=== PATIENT | male | born 1975 | race Caucasian/White ===

== ENCOUNTER 2018-06-30 09:11 | Emergency (ER) | payer BC ==
[2018-06-30] MEDS ORDERED: DIAZEPAM (VALIUM) 5MG/ML **10ML VIAL IM ONE (10:26)
[2018-06-30] MEDS ORDERED: PROMETHAZINE HCL 25 MG/ML VIAL IM ONE (10:26)
[2018-06-30] MEDS ORDERED: KETOROLAC 30 MG/ML VIAL IM ONE (10:26)
[2018-06-30] MEDS ORDERED: HYDROMORPHONE HCL 2 MG/ML VIAL IM ONE (10:26)
--- NOTE | 2018-06-30 10:32 | Emergency Department Record ---
History of Present Illness - General Chief Complaint: Back Pain/Injury Stated Complaint: BACK PAIN Time Seen by Provider: 06/30/18 10:00 Source: Patient Mode of Arrival: Ambulatory Limitations: No limitations - History of Present Illness Initial Comments: pt has had sciatica since last nov down r leg then over the last few days the l lower back has been hurting where pt cant even sit. pt has never had xrays. no problems w bowel or bladder Complaint: Back pain Onset/Timin -: Days(s) Similar Symptoms Previously: Yes Place: Other Severity: Moderate Severity scale (1-10): 5 Quality: Sharp Consistency: Constant, Intermittent Improves With: Walking Worsens With: Deep breaths/cough, Movement Context: Bending Associated Symptoms: Denies other symptoms Treatments Prior to Arrival: Acetaminophen, NSAIDS Treatment Prior to Arrival Comment:: 600 mg ibuprofen this AM - Related Data Previous Rx's Medication Instructions Recorded Diazepam [Valium] 5 mg PO Q8H #8 tab 06/30/18 Hydrocodone/Acetaminophen [[place] 1 each PO Q6HR #10 tablet 06/30/18 5-325 Tablet] Ibuprofen [Motrin] 800 mg PO Q8H PRN #20 tab 06/30/18 Allergies Allergy/AdvReac Type Severity Reaction Status Date / Time Penicillins Allergy Mild HIVES Verified 06/30/18 09:41 Travel Screening - Travel/Exposure Within Last 30 Days Have you traveled within the last 30 days?: No - Travel/Exposure Within Last Year Have you traveled outside the [place] in the last year?: No - Additonal Travel Details Have you been exposed to anyone with a communicable illness?: No - Travel Symptoms Symptom Screening: None Review of Systems Reviewed: No additional complaints except as noted below Constitutional: Reports: As per HPI. Denies: Chills, Fever, Malaise, Night sweats, Weakness, Weight change Eyes: Reports: As per HPI. Denies: Eye discharge, Eye pain, Photophobia, Vision change ENT: Reports: As per HPI. Denies: Congestion, Dental pain, Ear pain, Epistaxis, Hearing loss, Throat pain Respiratory: Reports: As per HPI. Denies: Cough, Dyspnea, Hemoptysis, Stridor, Wheezes Cardiovascular: Reports: As per HPI. Denies: Arrhythmia, Chest pain, Dyspnea on exertion, Edema, Murmurs, Orthopnea, Palpitations, Paroxysmal nocturnal dyspnea, Rheumatic Fever, Syncope Endocrine: Reports: As per HPI. Denies: Fatigue, Heat or cold intolerance, Polydipsia, Polyuria Gastrointestinal: Reports: As per HPI. Denies: Abdominal pain, Constipation, Diarrhea, Hematemesis, Hematochezia, Melena, Nausea, Vomiting Genitourinary: Reports: As per HPI. Denies: Dysuria, Frequency, Hematuria, Incontinence, Retention, Testicular pain, Testicular mass, Urgency Musculoskeletal: Reports: As per HPI, Back pain. Denies: Arthralgia, Gout, Joint swelling, Myalgia, Neck pain Skin: Reports: As per HPI. Denies: Bruising, Change in color, Change in hair/nails, Lesions, Pruritus, Rash Neurological: Reports: As per HPI. Denies: Abnormal gait, Confusion, Headache, Numbness, Paresthesias, Seizure, Tingling, Tremors, Vertigo, Weakness Psychiatric: Reports: As per HPI. Denies: Anxiety, Auditory hallucinations, Depression, Homicidal thoughts, Suicidal thoughts, Visual hallucinations Hematological/Lymphatic: Reports: As per HPI. Denies: Anemia, Blood Clots, Easy bleeding, Easy bruising, Swollen glands Past Medical History - SOCIAL HISTORY Smoking Status: Never smoker Alcohol Use: Occasional Drug Use: None - RESPIRATORY Hx Respiratory Disorders: Yes Hx Bronchitis: Yes - CARDIOVASCULAR Hx Cardio Disorders: No - NEURO Hx Neuro Disorders: No - GI Hx GI Disorders: No - Hx Genitourinary Disorders: No - ENDOCRINE Hx Endocrine Disorders: No - MUSCULOSKELETAL Hx Musculoskeletal Disorders: Yes Hx Arthritis: Yes (knee) - PSYCH Hx Psych Problems: No - HEMATOLOGY/ONCOLOGY Hx Hematology/Oncology Disorders: No Family Medical History Any Significant Family History?: Yes Hx Cancer: Grandparents Hx HTN: Father Physical Exam - General General Appearance: Alert, Oriented x3, Cooperative, Mild distress - Head Head exam: Normal inspection - Eye Eye exam: Normal appearance, PERRL, EOMI Pupils: Normal accommodation - ENT ENT exam: Normal exam, Mucous membranes moist, Normal external ear exam, Normal orophraynx Ear exam: Normal external inspection. negative: External canal tenderness Nasal Exam: Normal inspection. negative: Discharge, Sinus tenderness Mouth exam: Normal external inspection, Tongue normal Teeth exam: Normal inspection. negative: Dental caries Throat exam: Normal inspection. negative: Tonsillar erythema, Tonsillar exudate - Neck Neck exam: Normal inspection, Full ROM. negative: Tenderness - Respiratory Respiratory exam: Normal lung sounds bilaterally. negative: Respiratory distress - Cardiovascular Cardiovascular Exam: Regular rate, Normal rhythm, Normal heart sounds - GI/Abdominal GI/Abdominal exam: Soft, Normal bowel sounds. negative: Tenderness - Rectal Rectal exam: Deferred - exam: Deferred - Extremities Extremities exam: Normal inspection, Full ROM, Normal capillary refill. negative: Tenderness - Back Back exam: Reports: Muscle spasm, Paraspinal tenderness, Tenderness. Denies: Normal inspection, Full ROM, Rash noted - Neurological Neurological exam: Alert, CN II-XII intact, Normal gait, Oriented X3 - Psychiatric Psychiatric exam: Normal affect, Normal mood - Skin Skin exam: Dry, Intact, Normal color, Warm Course Vital Signs 06/30/18 09:41 Temperature 98.3 F Pulse Rate [ 72 Pulse Ox Probe] Respiratory 16 Rate Blood Pressure 125/84 [Right Arm] Pulse Ox 97 Disposition Disposition: Discharge Clinical Impression: Lumbar radiculopathy Lumbar strain Qualifiers: Encounter type: initial encounter Qualified Code(s): S39.012A - Strain of muscle, fascia and tendon of lower back, initial encounter Disposition: Home, Self-Care Condition: (1) Good Instructions: Lumbar Radiculopathy (ED), Low Back Strain (ED) Additional Instructions: follow up with family doctor. return sooner if worse. use ice and moist heat on back. have MRI of back. no lifting more then 5 lbs for 5 days Prescriptions: Hydrocodone/Acetaminophen [[place] 5-325 Tablet] 1 each PO Q6HR #10 tablet Ibuprofen [Motrin] 800 mg PO Q8H PRN #20 tab PRN Reason: Pain - Mod To Severe (5-10) Diazepam [Valium] 5 mg PO Q8H #8 tab Forms: Patient Portal Access Quality - Quality Measures Quality Measures: N/A - Blood Pressure Screening Does Patient Have Any of the Following: No Blood Pressure Classification: Pre-Hypertensive BP Reading Systolic Measurement: 125 Diastolic Measurement: 84 Screening for High Blood Pressure: < Pre-Hypertensive BP, F/U Documented > [G8950] Pre-Hypertensive Follow-up Interventions: Follow-up with rescreen every year.
--- NOTE | 2018-07-03 06:05 | RADIOLOGY REPORT ---
EXAM: LUMBAR SPINE / AP LAT HISTORY: BACK PAIN STARTING BEGINNING OF THIS YEAR, SUDDEN ONSET TODAY OF EXTREME PAIN WHEN TRYING TO GET OUT OF CHAIR WITH PAIN ACROSS LOW BACK. TECHNIQUE: AP and lateral views, lumbar spine. COMPARISON: None. FINDINGS: Slight tilting of the spine to the right, which may be due to positioning or spasm. Mild to moderate hypertrophic spurring seen in the lumbar spine fairly diffusely, most marked involving the anterior aspect of the superior endplate of L3. Mild narrowing of the lumbosacral interspace. Some facet joint arthropathy in the lower lumbar spine. No definite destructive lesion or fracture of the lumbar spine identified. IMPRESSION: 1. MILD TILTING OF THE LUMBAR SPINE TO THE RIGHT. 2. SOME HYPERTROPHIC AND DEGENERATIVE CHANGES IN THE LUMBAR SPINE NOTED ABOVE. JOB NUMBER: [id number] [facility]
== END 2018-06-30 11:43 | disposition home or self-care (01) ==
LOC: ER 09:11
DX: S39.012A Strain of muscle, fascia and tendon of lower back, initial encounter (principal); M54.16 Radiculopathy, lumbar region; X50.9XXA Other and unspecified overexertion or strenuous movements or postures, initial encounter
CPT/HCPCS: 99283; 96372; 99284; 72100; J1885; J1170; J3360; J2550

== ENCOUNTER 2019-03-07 07:57 | Day surgery (SDC) | payer BC ==
[~2019-03-07 07:57] MED LIST: ACETAMINOPHEN 1,000 MG/100 ML BTL IVPB ONE; FAMOTIDINE 20MG TABLET PO ONE; METOCLOPRAMIDE 10 MG TABLET PO ONE
[2019-03-07] MEDS ORDERED: LIDOCAINE 2% MDV (20MG/ML) 20ML VIAL IV ONE (07:58)
[2019-03-07] MEDS ORDERED: SEVOFLURANE 250 ML INH ONE (07:58)
[2019-03-07] MEDS ORDERED: PROPOFOL 10 MG/ML VIAL IV ONE (07:58)
[2019-03-07] MEDS ORDERED: MIDAZOLAM HCL 2MG/2ML VIAL IV ONE (07:58)
[2019-03-07] MEDS ORDERED: KETOROLAC 30 MG/ML VIAL IVP ONE (07:58)
[2019-03-07] MEDS ORDERED: FENTANYL PF 100MCG/2ML VIAL IV ONE (07:58)
[2019-03-07] MEDS ORDERED: ONDANSETRON HCL IV 4 MG/2 ML VIAL IVP ONE (07:58)
[2019-03-07] MEDS ORDERED: RINGERS SOLUTION,LACTATED 1,000 ML IV ONE (08:30)
[2019-03-07] MEDS ORDERED: BUPIVACAINE 0.25% W/EPI MPF 30ML VIAL SQ ONE (10:39)
--- NOTE | 2019-03-07 13:00 | Operative Note ---
DATE OF SURGERY: 03/07/2019 SURGEON: Prudencio Santoro D.O. REFERRING PHYSICIAN: Joaquin Stevens D.O. PREOPERATIVE DIAGNOSIS: 1. TORN MEDIAL MENISCUS OF THE RIGHT KNEE. 2. CHONDROMALACIA OF THE RIGHT KNEE. POSTOPERATIVE DIAGNOSIS: 1. TORN MEDIAL AND LATERAL MENISCUS OF THE RIGHT KNEE. 2. OSTEOARTHRITIS OF THE RIGHT KNEE. OPERATION: 1. ARTHROSCOPIC PARTIAL MEDIAL AND LATERAL MENISCECTOMY RIGHT KNEE. 2. ARTHROSCOPIC CHONDROPLASTY LATERAL FEMORAL CONDYLE, LATERAL TIBIAL PLATEAU, AND TROCHLEA OF THE RIGHT KNEE. DESCRIPTION: This 43-year-old male was taken to the Operating Room and placed in the supine position on the operating room table. A general anesthetic was administered and the right lower extremity was elevated, pepped with Hibiclens and draped in the usual sterile fashion. The tourniquet was inflated to 250 mmHg. After prepping and draping, an inferolateral portal was established for the 4 mm arthroscope and initial evaluation of the joint demonstrated normal appearance of the suprapatellar pouch, but the patient did have Grade 2 chondromalacia of the patella. It was not grossly unstable so it was not further disturbed. Through an inferomedial portal, however, we were probing the trochlea which demonstrated rather advanced Grade 2 change with loose flaps of articular cartilage noted in the center of the articular surface of the groove and this was about a 2 cm x 1 cm lesion. Chondroplasty was performed. The patella was seen to be in a laterally subluxed position. The medial compartment was entered and a root tear of the medial meniscus was identified, this appeared to be old, but it was slightly unstable and the flap was resected with the rotating shaver and re-probing confirmed it to be stable. The articular cartilage of the medial compartment, however, appeared to be normal. The intercondylar notch was examined and the anterior cruciate ligament demonstrated what appeared to be normal findings. The lateral compartment was entered and severe lateral compartment osteoarthritis was present. Full thickness articular cartilage loss noted in the lateral tibial plateau on the most medial side of the lateral tibial plateau. The entire lateral femoral condyle demonstrated very severe Grade 3 changes. There was also a tear of the posterior horn of the lateral meniscus with a flap tear present at the posterior horn and this was debrided with the rotating shaver . It was re-probed and confirmed to be stable. Debridement of the articular surface of the lateral femoral condyle is performed to stabilize the articular cartilage there as well as on the lateral tibial plateau. Once this was felt to be stabilized it was not further disturbed. We did identify that there was some degenerative scuffing of the lateral meniscus anterior horn just from the osteoarthritic changes which were present. There was a severe Grade 3 lesion noted on the lateral edge of the lateral femoral condyle above the meniscal reset which apparently was caused by a dislocation of the patella which occurred many years ago. The joint was then copiously irrigated and all areas were re-examined. No additional findings were present. The joint was suctioned, the instruments were removed, and the portals infiltrated with 0.25% Marcaine with Epinephrine. Sterile dressings were applied, tourniquet and knee palumbo were released and the patient was taken to the Recovery Room in satisfactory condition. 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 There was a root tear of the medial meniscus and Grade 2 chondromalacia of the trochlea, and Grade 2 chondromalacia of the patella as described above. JOB NUMBER: [id number] [facility]
== END 2019-03-07 11:57 | disposition home or self-care (01) ==
LOC: SUR 07:57
PROVIDERS: ATTEND Orthopaedic Surgery
DX: M23.251 Derangement of posterior horn of lateral meniscus due to old tear or injury, right knee (principal); M23.231 Derangement of other medial meniscus due to old tear or injury, right knee; E78.00 Pure hypercholesterolemia, unspecified; M19.90 Unspecified osteoarthritis, unspecified site; K21.9 Gastro-esophageal reflux disease without esophagitis; G47.30 Sleep apnea, unspecified
CPT/HCPCS: J1885; J2405; J7120